=== PATIENT | female | born 1990 | race Caucasian/White ===

== ENCOUNTER 2017-12-27 18:14 | Outpatient (CLI) | payer OTHER ==
[2017-12-27 19:11] VITALS: BP 97/55
--- NOTE | 2017-12-27 21:50 | Ultrasound Report ---
FINAL REPORT EXAM: US OB LIMITED HISTORY: decreased movement TECHNIQUE: Ultrasound obstetrical transabdominal PRIORS: None. FINDINGS: Single live intrauterine gestation present. Position is cephalic The placenta is grade 1 and fundal Amniotic fluid index is within normal limits 11.7 centimeters cardiac activity is present with heart rate of 150 beats per minute IMPRESSION: Single live intrauterine gestation Normal amniotic fluid index
--- NOTE | 2017-12-27 21:51 | Ultrasound Report ---
FINAL REPORT EXAM: US OB BPP WO NON-STRESS HISTORY: decreased movement TECHNIQUE: Ultrasound biophysical profile PRIORS: None. FINDINGS: Single live intrauterine gestation is present with heart rate of 154 beats per minute Biophysical profile was performed respiratory motion 2 Body movement 2 tone 2 Amniotic fluid volume 2 Total 06/25 Impression Normal biophysical profile 06/25
== END 2017-12-27 21:20 | disposition home or self-care (01) ==
LOC: TRG 18:14
PROVIDERS: ATTEND Obstetrics & Gynecology Gynecology
DX: O36.8130 Decreased fetal movements, third trimester, not applicable or unspecified (principal); O47.03 False labor before 37 completed weeks of gestation, third trimester; Z3A.28 28 weeks gestation of pregnancy
CPT/HCPCS: 59025; 76815; 76819

== ENCOUNTER 2020-12-12 09:51 | Outpatient (CLI) | payer OTHER ==
[2020-12-12] MEDS ORDERED: LIDOCAINE (4%) 40 MG/ML TOPICAL SOLN 50 ML BOTTLE TP SCH (10:00)
== END 2020-12-12 09:52 | disposition home or self-care (01) ==
LOC: WOUND 09:51
PROVIDERS: ATTEND Surgery
DX: R21 Rash and other nonspecific skin eruption (principal)
CPT/HCPCS: 99214; G0463